=== PATIENT | female | born 1980 | race Caucasian/White ===

== ENCOUNTER 2022-04-04 12:55 | Emergency (ER) | payer OTHER, SELFPAY ==
[2022-04-04 13:00] VITALS: BP 149/102; PULSE 106; RESP 18; TEMP 36.3; O2SAT 98; BMI 28.8
--- NOTE | 2022-04-04 13:23 | ED.GENADULT ---
HPI - General Adult General Chief complaint: Extremity Pain/Injury, Lower Stated complaint: Right hip pain Time Seen by Provider: 04/04/22 12:58 Source: patient Mode of arrival: ambulatory Limitations: no limitations History of Present Illness HPI narrative: 41-year-old female coming in today concerned about right-sided hip pain that has been going on for about 5 days. In the last 3 days has gotten worse. Pain is located at the top of the lateral thigh. Movement seems to make it worse. Nothing really makes it better. She denies any systemic symptoms such as fevers or chills. No nausea or vomiting. She denies pain in any other joints. She denies any changes in her medications. She denies any trauma to the area. Related Data Home Medications Medication Instructions Recorded Confirmed Wellbutrin 04/04/22 insulin admin supplies 04/04/22 levothyroxine 04/04/22 Allergies Allergy/AdvReac Type Severity Reaction Status Date / Time No Known Drug Allergies Allergy Verified 04/04/22 13:06 Review of Systems Status of ROS: Reports: 10 or more systems reviewed and unremarkable except as noted in History and below Exam Narrative: Exam Narrative: Well-nourished well-developed patient in no acute distress. Alert and oriented. Answers questions appropriately. Mood and affect are appropriate. Thoughts are goal oriented and rational. No tangential or magical thinking noted. Patient speaks in full sentences without needing to catch her breath. HEENT: Normocephalic atraumatic. Pupils are equally round reactive to light. Extraocular muscles are intact. Conjunctivae are moist without any icterus noted. Abdomen: Soft and nontender nondistended with normal bowel sounds. Extremities: Bilateral lower extremities are without edema. Normal DP and PT pulses. Patient has acute tenderness directly over the trochanteric bursa. She has full range of motion at the hip however passive add adduction is painful and she does resist this. Skin: Well perfused without any obvious rashes. Const: Vital Signs, click to edit/add: Vital Signs - 24 hr 04/04/22 13:00 Temperature 97.3 F L Pulse Rate [Right Pulse Oximeter] 106 H Respiratory Rate 18 Blood Pressure [Ri ght Upper Arm] 149/102 H Pulse Oximetry 98 Oxygen Delivery Me thod Room Air Course Course Hospital Course: Given the amount of pain present directly over the trochanteric bursa we discussed options today including a bursa injection which the patient wishes to have done. She states she has been taking ibuprofen at home and has not really been helping. Risks and benefits of this procedure were discussed including infection and increased pain. Patient wished to proceed. Procedure note: Area was cleaned in the usual sterile manner with Betadine, 1.5 mg of 2% lidocaine and 20 mg of Kenalog were injected into the the area that was most painful. Patient tolerated the procedure well. Vital Signs Vital signs: Initial Vital Signs Temperature 97.3 F L 04/04/22 13:00 Temperature Source Temporal Artery Scan 04/04/22 13:00 Pulse Rate 106 H 04/04/22 13:00 Respiratory Rate 18 04/04/22 13:00 Blood Pressure 149/102 H 04/04/22 13:00 Blood Pressure Mean 117 04/04/22 13:00 Pulse Oximetry 98 04/04/22 13:00 Oxygen Delivery Method 04/04/22 13:00 Vital Signs Temperature 97.3 F L 04/04/22 13:00 Pulse Rate 106 H 04/04/22 13:00 Respiratory Rate 18 04/04/22 13:00 Blood Pressure 149/102 H 04/04/22 13:00 Pulse Oximetry 98 04/04/22 13:00 Oxygen Delivery Method 04/04/22 13:00 Temperature 97.3 F L 04/04/22 13:00 Pulse Rate 106 H 04/04/22 13:00 Respiratory Rate 18 04/04/22 13:00 Blood Pressure 149/102 H 04/04/22 13:00 Pulse Oximetry 98 04/04/22 13:00 Oxygen Delivery Method 04/04/22 13:00 Medical Decision Making MDM Narrative Medical decision making narrative: Trochanteric bursitis. Status post Kenalog injection in the ED today. We discussed continued NSAID use. We discussed making sure she is not sleeping on that side. Patient is requesting crutches to aid her in walking over the next couple days which were given her in the ED. we discussed signs of infection he is status post injection. We discussed reasons to return to the ER reasons to follow-up with her primary care provider. Discharge Plan Discharge Clinical Impression: Bursitis, trochanteric Patient Disposition: Home, Self-Care Condition: Stable Additional Instructions: Watch for signs of infection which would include redness or increased heat in the area that was injected. Return to the ER right away if this occurs. He avoid overuse of the right hip for 1 week and then gradually return to normal activity. He if you have a hard mattress consider switching mattresses or applying a pad to the mattress where your hips are. Avoid lying right hip down. If you do not notice a difference in the next few days, follow-up with your primary care provider in the clinic. Prescriptions: No Action levothyroxine Wellbutrin insulin admin supplies Stand Alone Forms: [employer] Info Instructions
[2022-04-04] MEDS: lidocaine HCL 2 % MULTIDOSE 20 ML VIAL INJECTION (13:55)
[2022-04-04] MEDS: TRIAMCINOLONE 40 MG/ML INJ 20 MG INTRA-ARTI (13:55)
== END 2022-04-04 14:22 | disposition home or self-care (01) ==
PROVIDERS: Emergency Provider Family Medicine
DX: M70.61 Trochanteric bursitis, right hip (principal)
CPT/HCPCS: 20610; 99283; 99284; J3301